=== PATIENT | female | born 1990 | race Caucasian/White ===

== ENCOUNTER 2017-02-04 16:08 | Emergency (ER) | payer SELFPAY ==
[2017-02-04 16:12] VITALS: TEMP 98.1; BMI 19.5
--- NOTE | 2017-02-04 16:19 | PDOC ---
History of Present Illness - General Chief Complaint: Pain Stated Complaint: STOMACH PAIN Time Seen by Provider: 02/04/17 16:18 History Source: Patient Exam Limitations: No Limitations - History of Present Illness Initial Comments: 02/04/17 16:38 This pt is a 26 yo F otherwise healthy who presents to the ER with a complaint of concern for parasites Pt states that she was in her usual state of health until 2 days ago She had a hamburger 3 days ago that was a little bit rare Beginning 2 days ago, she has noticed a sensation in her abdomen of " something moving" No pain No distention No fevers or chills No nausea, vomiting, diarrhea She has actually been constipated took a laxative yesterday and had a normal bowel movement today No prior episodes like this No international travel since age 14 Pt states she has not eaten any foods from another country PMH: denies PSH: denies Meds: denies ALL: NKDA Social: denies alcohol, drug, cigarette use ROS: GENERAL/CONSTITUTIONAL: No: fever, chills, weakness, loss of appetite. HEAD, EYES, EARS, NOSE AND THROAT: No: change in vision, ear pain, discharge, sore throat, throat swelling. CARDIOVASCULAR: No: chest pain, lightheadedness, palpitations, syncope RESPIRATORY: No: cough, shortness of breath, wheezing, hemoptysis, stridor. GASTROINTESTINAL: Yes: abdominal sensation, constipation No: nausea, vomiting, abdominal cramping, diarrhea, rectal bleeding, constipation. GENITOURINARY: No: dysuria, hematuria, frequency, urgency, flank pain. MUSCULOSKELETAL: No: back pain, neck pain, joint pain, muscle swelling or pain SKIN AND BREASTS: No: lesions, pallor, rash or easy bruising. NEUROLOGIC: No: headache, vertigo, paresthesias, weakness ENDOCRINE: No: unexplained weight gain or loss HEMATOLOGIC/LYMPHATIC: No: anemia, easy bleeding, swelling nodes Adult PE GENERAL: The patient is in no acute distress. HEAD: Normal with no signs of trauma. EYES: PERRLA, EOMI, sclera anicteric, conjunctiva clear. ENT: Ears normal, nares patent, oropharynx clear without exudates. Moist mucous membranes. NECK: Normal range of motion, supple without lymphadenopathy, JVD, or masses. LUNGS: Breath sounds equal, clear to auscultation bilaterally. No wheezes, and no crackles. HEART:Regular rate and rhythm, normal S1 and S2 without murmur, rub or gallop. ABDOMEN: Soft, nontender, normoactive bowel sounds. No guarding, no rebound. EXTREMITIES: Normal range of motion, no edema. No clubbing or cyanosis. No erythema, or tenderness. NEUROLOGICAL: Cranial nerves II through XII grossly intact. Normal speech. No focal neurological deficits. MUSCULOSKELETAL: Back non-tender to palpation, no CVA tenderness SKIN: Warm, Dry, normal turgor, no rashes or lesions noted. Past History - Past Medical History Allergies/Adverse Reactions: Allergies Allergy/AdvReac Type Severity Reaction Status Date / Time No Known Allergies Allergy Verified 02/04/17 16:12 Home Medications: Ambulatory Orders NK [No Known Home Medication] 02/04/17 Asthma: No Cancer: No Cardiac Disorders: No Diabetes: No HTN: No Seizures: No Thyroid Disease: No - Immunization History Immunization Up to Date: Yes - Psycho/Social/Smoking Cessation Hx Anxiety: No Suicidal Ideation: No Smoking History: Never smoked Have you smoked in the past 12 months: No Number of Cigarettes Smoked Daily: 0 Information on smoking cessation initiated: No Hx Alcohol Use: No Drug/Substance Use Hx: No Substance Use Type: None Hx Substance Use Treatment: No *Physical Exam - Vital Signs Last Vital Signs Temp Pulse Resp BP Pulse Ox 98.1 F 88 18 119/66 100 02/04/17 16:10 02/04/17 16:10 02/04/17 16:10 02/04/17 16:10 02/04/17 16:10 Medical Decision Making - Medical Decision Making 02/04/17 16:41 concern for parasite We have had a long conversation re: most likely cause of her symptoms Pt states she can not give a stool sample I have referred her to her PMD for a stool sample and follow up *DC/Admit/Observation/Transfer Diagnosis at time of Disposition: Abdominal discomfort - Discharge Dispostion Disposition: HOME Condition at time of disposition: Stable Admit: No - Referrals Referrals: Carmen Nunes MD [Staff Physician] - Steve Melgoza MD [Staff Physician] - Zaki Cline MD [Staff Physician] - - Patient Instructions Printed Discharge Instructions: DI for Abdominal Pain-Adult Additional Instructions: Camila Thank you for coming in to the ER today please be sure to follow up with your primary care physician within 2 -3 days please return to the ER for fevers, chills, abdominal pain, nausea, vomiting, any other concerns or complaints
[2017-02-04 16:58] VITALS: BP 102/75; PULSE 72
== END 2017-02-04 16:58 | disposition home or self-care (01) ==
LOC: JER 16:08
DX: R10.84 Generalized abdominal pain (principal)
CPT/HCPCS: 99282-25

== ENCOUNTER 2018-01-31 21:21 | Emergency (ER) | payer SELFPAY ==
[2018-01-31 21:25] VITALS: BP 107/76; PULSE 69; TEMP 98.2; BMI 19.7
--- NOTE | 2018-01-31 22:53 | PDOC ---
History of Present Illness - General Chief Complaint: Chest Pain Stated Complaint: CHEST PAIN,SOB Time Seen by Provider: 01/31/18 22:40 History Source: Patient Exam Limitations: No Limitations - History of Present Illness Initial Comments: 01/31/18 22:55 HISTORY OF PRESENT ILLNESS: This is a 27-year-old woman without significant medical history presents emergency Department with chest pain with deep inspiration starting at approximately 2:00 this afternoon. Patient states the pain started while she was at rest. Patient states the pain started with a rating of 7/10 and is slowly decreased to a current level of 3/10. Patient has not taken anything for analgesia prior to hospital arrival. Patient denies any recent travel, oral control, recent surgeries, smoking. Patient denies any fevers, cough, shortness of breath, dizziness, nausea, vomiting, abdominal pain. No recent travel or sick contacts. PAST MEDICAL HISTORY: Denies past medical history SURGICAL HISTORY: Denies ALLERGIES: No known drug allergies REVIEW OF SYSTEMS General/Constitutional: Denies fever or chills. Denies weakness, weight change. HEENT: Denies change in vision. Denies ear pain or discharge. Denies sore throat. Cardiovascular:chest pain with deep inspiration. No shortness of breath. Respiratory: Denies cough, wheezing, or hemoptysis. Gastrointestinal: Denies nausea, vomiting, diarrhea or constipation. Denies rectal bleeding. Genitourinary: Denies dysuria, frequency, or change in urination. Musculoskeletal: Denies joint or muscle swelling or pain. Denies neck or back pain. Skin and breasts: Denies rash or easy bruising. Neurologic: Denies headache, vertigo, loss of consciousness, or loss of sensation. Psychiatric: Denies depression or anxiety. Endocrine: Denies increased thirst. Denies abnormal weight change. Hematologic/Lymphatic: Denies anemia, easy bleeding, or history of blood clots. Allergic/Immunologic: Denies hives or skin allergy. Denies latex allergy. PHYSICAL EXAM General Appearance: Well-appearing, appropriately dressed. No apparent distress , no intoxication. HEENT: EOMI, PERRLA, normal ENT inspection, normal voice, TMs normal, pharynx normal. No conjunctival pallor. No photophobia, scleral icterus. Neck: Supple. Trachea midline. No tenderness, rigidity, carotid bruit, stridor , lymphadenopathy, or thyromegaly. Respiratory/Chest: Lungs CTAB. No shortness of breath, chest tenderness, respiratory distress, accessory muscle use. No crackles, rales, rhonchi, stridor , wheezing, dullness Cardiovascular: RRR. S1, S2. No JVD, murmur, bradycardia, tachycardia. Vascular Pulses: Dorsalis-Pedis (R): 2+, Dorsalis-Pedis (L): 2+ Gastrointestinal/Abdominal: Normal bowel sounds. Abdomen soft, non-distended. No tenderness or rebound tenderness. No organomegaly, pulsatile mass, guarding, hernia, hepatomegaly, splenomegaly. Lymphatic: No adenopathy, tenderness. Musculoskeletal/Extremities: Normal inspection. FROM of all extremities, normal capillary refill. Pelvis Stable. No CVA tenderness. No tenderness to extremities, pedal edema, swelling, erythema or deformity. Integumentary: Appropriate color, dry, warm. 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 Fully oriented, alert. Appropriate mood/affect. Motor strength 5/5. No appreciable EOM palsy, facial droop or sensory deficit. Past History - Past Medical History Allergies/Adverse Reactions: Allergies Allergy/AdvReac Type Severity Reaction Status Date / Time No Known Allergies Allergy Verified 01/31/18 21:25 Home Medications: Ambulatory Orders NK [No Known Home Medication] 02/04/17 Asthma: No Cancer: No Cardiac Disorders: No COPD: No Diabetes: No HTN: No Seizures: No Thyroid Disease: No - Immunization History Immunization Up to Date: Yes - Suicide/Smoking/Psychosocial Hx Smoking History: Never smoked Have you smoked in the past 12 months: No Number of Cigarettes Smoked Daily: 0 Hx Alcohol Use: No Drug/Substance Use Hx: No Substance Use Type: None Hx Substance Use Treatment: No *Physical Exam - Vital Signs Last Vital Signs Temp Pulse Resp BP Pulse Ox 98.2 F 69 18 107/76 100 01/31/18 21:23 01/31/18 21:23 01/31/18 21:23 01/31/18 21:23 01/31/18 21:23 Medical Decision Making - Medical Decision Making 01/31/18 22:55 A/P: 27-year-old female without significant medical history with 1 day of pleuritic chest pain No chest tenderness Lungs clear to auscultation bilaterally RRR. S1 and S2 present. No murmur, rub or gallop noted. No change in pain with change of positions Abdomen soft nontender nondistended DDx: PNA, bronchitis, gerd, Less likely PE as she does not meet PERC criteria. Chest x-ray, EKG, Tylenol, reassess 01/31/18 23:39 Chest x-rays read by me: Angles clear. Cardiac silhouette is within normal limits. No focal infiltrates or consolidations present. EKG is sinus rhythm with rate of 67. Normal intervals noted. No T-wave inversions, ST elevations or ST depressions noted I will discharge patient home to follow-up with her primary doctor. *DC/Admit/Observation/Transfer Diagnosis at time of Disposition: Pleuritic chest pain - Discharge Dispostion Disposition: HOME Condition at time of disposition: Fair Decision to Admit order: No - Referrals Referrals: Alexis Egan MD [Staff Physician] - - Patient Instructions Additional Instructions: EKG a chest x-ray today were normal. Make an appointment to primary doctor for continued evaluation of her pain. Return to emergency department for worsening pain, shortness of breath, dizziness, blurry vision, nausea, vomiting or any other concerns. Thank you very much for choosing us to provide your emergent health care needs. - Post Discharge Activity
--- NOTE | 2018-02-01 15:39 | EKG ---
Test Reason : Blood Pressure : / mmHG Vent. Rate : 067 BPM Atrial Rate : 067 BPM P-R Int : 126 ms QRS Dur : 086 ms QT Int : 386 ms P-R-T Axes : 062 066 056 degrees QTc Int : 407 ms NORMAL SINUS RHYTHM NORMAL ECG NO PREVIOUS ECGS AVAILABLE Confirmed by MADDI ARGUELLO MD ([id number]) on 02/01/2018 3:39:29 PM Referred By: Confirmed By:MADDI ARGUELLO MD
== END 2018-01-31 23:45 | disposition home or self-care (01) ==
LOC: JER 21:21
DX: R07.81 Pleurodynia (principal)
CPT/HCPCS: 71046-TC-FY; 93005; 93010; 99281-25